=== PATIENT | male | born 1975 | race Two or more races ===

== ENCOUNTER 2024-02-14 17:10 | Emergency (ER) | payer OTHER ==
[~2024-02-14] VITALS: Ht 170.2 cm; Wt 77.1 kg
[2024-02-14] MEDS ORDERED: PROAIR RESPICL90 MCG IH (17:40)
[2024-02-14] MEDS ORDERED: MEDROLPACK PO (17:40)
[2024-02-14] MEDS ORDERED: TUSNEL LIQUID178 ML PO (17:40)
[2024-02-14] MEDS ORDERED: APAP500 MG PO (17:40)
[2024-02-14] MEDS ORDERED: DEXAMETHASONE SODIUM PHOSPHATE 4 MG/ML VIAL IM ONE (17:45)
[2024-02-14] MEDS ORDERED: ACETAMINOPHEN 500 MG GEL..CAP PO ONE (17:45)
[2024-02-14] MEDS ORDERED: GUAIFENESIN/DEXTROMETHORPHAN 10ML BLIST.PACK PO ONE (17:45)
[2024-02-14] MEDS ORDERED: KETOROLAC TROMETHAMINE 60 MG VIAL IM ONE (17:45)
[2024-02-14] MEDS ORDERED: ZITHROMAX500 MG PO (17:50)
== END 2024-02-14 18:22 | disposition home or self-care (01) ==
LOC: ER 17:11
DX: U07.1 COVID-19 (principal)